=== PATIENT | female | born 1945 | race Hispanic/Latino ===

== ENCOUNTER → 2018-04-03 | Outpatient (CLI) | payer MEDICARE ==
[~2018-04-03] MED LIST: AMLO5TAB9 PO; ASPI-1005 PO; ATOR10 PO; CEFD300C3 PO; CHLO25TA3 PO; DONE5TAB33 PO; FAMO20TA8 PO; INSU3INS3 SQ; IRON PO; LETR2.5T6 PO; LOSA25TA41 PO; METF-446 PO; METO100T14 PO; PANT40TA25 PO
== END | disposition home or self-care (01) ==
LOC: RAH 12:57
PROVIDERS: ATTEND Nurse Practitioner Family
DX: J32.3 Chronic sphenoidal sinusitis (principal); R60.9 Edema, unspecified; R90.82 White matter disease, unspecified
CPT/HCPCS: 70450

== ENCOUNTER → 2021-08-27 | Outpatient (CLI) | payer OTHER, MEDICARE ==
[~2021-08-27] MED LIST changes: +AMLO-257 PO; -AMLO5TAB9 PO; -LETR2.5T6 PO; +LETR2.5T7 PO; -PANT40TA25 PO; +PANT40TA54 PO
== END | disposition home or self-care (01) ==
LOC: SHCH 08:36
PROVIDERS: ATTEND Internal Medicine Cardiovascular Disease
DX: I34.0 Nonrheumatic mitral (valve) insufficiency (principal); I11.9 Hypertensive heart disease without heart failure; E11.9 Type 2 diabetes mellitus without complications; E78.5 Hyperlipidemia, unspecified; Z86.73 Personal history of transient ischemic attack (TIA), and cerebral infarction without residual deficits
CPT/HCPCS: 93306

== ENCOUNTER → 2022-07-08 | Outpatient (CLI) | payer OTHER, MEDICARE ==
[2022-07-08 12:31] LABS: ALBUMIN 3.5 g/dL (3.5-5.0); CREATININE 1.1 mg/dL (0.5-1.5); POTASSIUM 4.1 mmol/L (3.5-5.1); TOTAL PROTEIN, SERUM 7.7 g/dL (6.0-8.3)
== END | disposition home or self-care (01) ==
LOC: LAB 09:34
PROVIDERS: ATTEND Internal Medicine Cardiovascular Disease
DX: I10 Essential (primary) hypertension (principal); I67.9 Cerebrovascular disease, unspecified
CPT/HCPCS: 36415; 80053; 80061